=== PATIENT | male | born 1945 | race Caucasian/White ===

== ENCOUNTER → 2018-03-05 10:04 | Outpatient (CLI) | payer OTHER, SELFPAY ==
--- NOTE | 2018-03-05 | DI.US.S_ITS ---
PROCEDURE: US ABD AORTA ANEURYSM SCREEN INDICATIONS: HISTORY SMOKING TECHNIQUE: Real time scanning was performed of the aorta and iliac arteries, with image documentation. COMPARISON: None. FINDINGS: Aorta: Proximal aortic diameter measures 1.9 cm. Mid-aorta measures 1.7 cm. Distal aortic diameter is 1.7 cm. Iliac arteries: Right common iliac artery measures 1.4 cm. Left common iliac artery measures 1.3 cm. IMPRESSION: Negative for aneurysm Dictated by: Dae Lorenzo M.D. on 03/05/2018 at 11:53 Approved by: Dae Lorenzo M.D. on 03/05/2018 at 11:54
== END ==
PROVIDERS: Family Provider Family Medicine; PCP Family Medicine; Visit Provider Family Medicine
DX: Z13.6 Encounter for screening for cardiovascular disorders (principal); Z87.891 Personal history of nicotine dependence
CPT/HCPCS: 76706

== ENCOUNTER → 2018-07-20 09:09 | Outpatient (CLI) | payer MEDICARE, OTHER, SELFPAY ==
--- NOTE | 2018-07-20 | DI.ECHO.S_ITS ---
[place] +---------+ Hospital +---------+ : : [address] : : : : [id number] : : : : Phone: [phone]+ Echocardiogram Report + + :Name: LIN ZAVALA Study Date: 07/20/2018 Height: 71 in : :[facility] Weight: 190 lb : : Gender: Male BSA: 2.1 m2 : :: 1945 Age: 73 yrs BP: 170/104 mmHg: :Reason For Study: Pericardial Effusion, Hypertension : :Ordering Physician: : :Damien Souza Performed By: Liana Taylor : + + Interpretation Summary Left ventricular wall thickness is mild-moderately increased. Left ventricular systolic function is normal without focal wall motion abnormalities. The ejection fraction is estimated to be 60-65%. Diastolic parameters suggest a relaxation abnormality of the left ventricle, consistent with probable normal filling pressures. The right ventricle is normal in size and function. Pulmonary artery pressures cannot be estimated because of the lack of a measurable TR jet velocity. The left atrium is mildly dilated. Right atrial size is normal. There is mild aortic regurgitation. There is no other significant valvular heart disease. The ascending aorta is mildly enlarged. The aortic arch is mildly enlarged. There is a trace loculated pericardial effusion. There are no echocardiographic or Doppler indications for cardiac tamponade. Procedure: A two-dimensional transthoracic echocardiogram with color flow and Doppler was performed. The study quality was technically adequate. There is no prior echocardiogram noted for this patient. The patient's blood pressure was 170/104 mmHg before the echo and 130/90 mmHg afterwards. The patient was in sinus bradycardia with heart rates between 53-64 bpm during the exam. Left Ventricle: The left ventricle is normal in size. Left ventricular wall thickness is mild-moderately increased. Left ventricular systolic function is normal without focal wall motion abnormalities. The ejection fraction is estimated to be 60-65%. Diastolic parameters suggest a relaxation abnormality of the left ventricle, consistent with probable normal filling pressures. Right Ventricle: The right ventricle is normal in size and function. Atria: The left atrium is mildly dilated. Right atrial size is normal. There is no Doppler evidence for an interatrial shunt. Mitral Valve: The mitral valve is normal in structure and function. There is trace mitral regurgitation. Aortic Valve: The aortic valve is mildly calcified. The aortic valve is trileaflet. There is no aortic valve stenosis. There is mild aortic regurgitation. Tricuspid Valve: The tricuspid valve is normal in structure and function. There is a trace or physiologic amount of tricuspid regurgitation. Pulmonary artery pressures cannot be estimated because of the lack of a measurable TR jet velocity. Pulmonic Valve: The pulmonic valve is not well visualized. There is no other significant valvular heart disease. Great Vessels: The aortic root is normal size. The ascending aorta is mildly enlarged. The aortic arch is mildly enlarged. The IVC is of normal diameter and collapses greater than 50% with a sniff. This suggests a low right atrial pressure of 3 mm Hg. Pericardium/ Pleura There is a trace loculated pericardial effusion. There are no echocardiographic or Doppler indications for cardiac tamponade. MMode/2D Measurements & Calculations LVIDd: 4.6 cm LVOT diam: 2.0 cm LVIDs: 3.0 cm Ao root diam: 3.1 cm FS: 35.0 % Aortic Jxn: 2.8 cm EPSS: 0.74 cm asc Aorta Diam: 3.5 cm IVSd: 1.4 cm Ao Arch Diam (Prox Trans): 3.3 cm LVPWd: 1.4 cm LV weir. diameter/BSA (cm/m^2): 2.3 LV sys. diameter/BSA (cm/m^2): 1.5 LA A2 area: 22.9 cm2 RA long axis: 4.8 cm LA A4 area: 21.2 cm2 RA area: 13.6 cm2 LA length (vol): 5.5 cm RA vol: 32.7 ml LA vol: 74.5 ml RA : 15.8 ml/m2 LA vol index: 36.1 ml/m2 IVC diam: 1.4 cm RVD1 (basal): 3.0 cm RVD2 (mid): 2.2 cm TAPSE: 2.4 cm Doppler Measurements & Calculations Ao V2 max: 144.4 cm/sec LVOT Max Checo: 113.6 cm/sec Ao V2 mean: 90.7 cm/sec LV V1 max P.2 mmHg Ao max P.3 mmHg LV V1 VTI: 22.4 cm Ao mean P.0 mmHg BRANDO(I,D): 2.7 cm2 Ao V2 VTI: 25.5 cm RBANDO(V,D): 2.4 cm2 sev ratio: 0.88 BRANDO indexed to BSA (cm^2/m^2): 1.3 AI P1/2t: 814.3 msec AI dec slope: 173.0 cm/sec2 MV E max checo: 41.5 cm/sec PA V2 max: 80.3 cm/sec MV A max checo: 57.4 cm/sec PA V2 mean: 55.4 cm/sec MV E/A: 0.72 PA mean P.5 mmHg Med Peak E' Checo: 3.6 cm/sec PA Accel Time: 0.13 sec E/E' med: 11.6 Lat Peak E' Checo: 6.0 cm/sec E/E' lat: 6.9 E/e' average: 9.3 MV dec time: 0.26 sec MV P1/2t: 75.4 msec MV P1/2t max checo: 41.7 cm/sec MVA(P1/2t): 2.9 cm2 Reading Physician:DEE DEE
== END ==
PROVIDERS: PCP Family Medicine; Visit Provider Family Medicine
DX: I35.1 Nonrheumatic aortic (valve) insufficiency (principal); I31.3 Pericardial effusion (noninflammatory); I10 Essential (primary) hypertension
CPT/HCPCS: 93306